=== PATIENT | female | born 1965 | race Caucasian/White ===

== ENCOUNTER 2020-04-20 19:55 | Emergency (ER) | payer OTHER ==
[~2020-04-20] VITALS: Ht 172.7 cm; Wt 99.8 kg
--- NOTE | 2020-04-20 20:32 | Emergency Department Note ---
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; PT NOTICED SWELLING TO SITE WAS MORE SWOLLEN; PT CURRENTLY ON ABX X1WK; PT WAS SEEN AT AN URGENT CARE YESTERDAY AND STARTED ON HIGHER DOSE OF ABX ( CLINDAMYCIN 300MG) AND TOLD TO COME TO THE ER TO HAVE ABSCESS LANCED; PT DENIES FEVER/CHILLS Historian: Patient Arrival Mode: Car Home Energy Inspector Required: No Onset (how long ago): week(s) (1) Location: R upper teeth Quality: Dull Radiation: Reports non-radiation Severity: mild Onset quality: gradual Duration (how long): week(s) (1) Timing of current episode: constant Progression: unchanged Chronicity: new Context: Denies recent illness, Denies recent surgery Relieving factors: none Exacerbating factors: none Associated symptoms: Reports denies other symptoms Treatments prior to arrival: none Past Medical/Family History Physician Review I have reviewed the patient's past medical and family history. Any updates have been documented here. Past Medical History Recent Fever: No Clinical Suspicion of Infectio: No New/Unexplained Change in Ment: No Review of Systems Review of Systems Constitutional: Reports no symptoms EENTM: Reports as per HPI, Reports other (R upper tooth/maxillary pain) Cardiovascular: Reports no symptoms Respiratory: Reports no symptoms Gastrointestinal: Reports no symptoms Genitourinary: Reports no symptoms Musculoskeletal: Reports no symptoms Integumentary: Reports no symptoms Neurological: Reports no symptoms Psychological: Reports no symptoms Endocrine: Reports no symptoms Hematological/Lymphatic: Reports no symptoms Physical Exam Related Data Allergies: Coded Allergies: Penicillins (Verified Allergy, Severe, ANAPHYLAXIS, 04/20/20) Triage Vital Signs Vital Signs Date Time Temp Pulse Resp B/P (MAP) Pulse Ox O2 Delivery O2 Flow Rate FiO2 04/20/20 20:12 98.5 75 18 126/69 99 Room Air Vital signs reviewed: Yes Physical Exam CONSTITUTIONAL Constitutional: Present well-developed, Present well-nourished HENT HENT: Present normocephalic, Present atraumatic, Present oropharynx clear/moist, Present nose normal, Present other (R maxiallary tenderness) HENT L/R: Present left ext ear normal, Present right ext ear normal EYES Eyes: Reports PERRL, Reports conjunctivae normal NECK Neck: Present ROM normal PULMONARY Pulmonary: Present effort normal, Present breath sounds normal CARDIOVASCULAR Cardiovascular: Present regular rhythm, Present heart sounds normal, Present capillary refill normal, Present normal rate GASTROINTESTINAL Abdominal: Present soft, Present nontender, Present bowel sounds normal GENITOURINARY Genitourinary: Present exam deferred SKIN Skin: Present warm, Present dry MUSCULOSKELETAL Musculoskeletal: Present ROM normal NEUROLOGICAL Neurological: Present alert, Present oriented x 3, Present no gross motor or sensory deficits PSYCHOLOGICAL Psychological: Present mood/affect normal, Present judgement normal Results Laboratory Lab results reviewed: Yes Imaging Imaging results reviewed: Yes Assessment & Plan Medical Decision Making MDM 54-year-old female presents for evaluation of right-sided maxillary tooth pain. She states the urgent care felt there could be an abscess. Significant for mild right maxillary tenderness but no obvious abscess. CT max face shows small .5x.3x.3 abscess which is not readily available to drain. Instructed her to continue taking her Clindamycin and follow up with her dentist. Reassessment Reassessment time: 22:09 Reassessment Well appearing, NAD Assessment & Plan Final Impression: (1) Dental infection Depart Disposition: HOME, SELF-CARE Last Vital Signs Date Time Temp Pulse Resp B/P (MAP) Pulse Ox O2 Delivery O2 Flow Rate FiO2 04/20/20 20:12 98.5 75 18 126/69 99 Room Air JOANNA FRANK MD Apr 20, 2020 20:32
[2020-04-20 20:37] LABS: BASOPHILS % 0.2 % (0.0-1.0); EOSINOPHILS # (AUTO) 0.2 (0.0-0.4); EOSINOPHILS % 1.7 % (0.0-6.0); HEMATOCRIT 40.2 % (34.2-44.1); HEMOGLOBIN 13.1 g/dL (12.0-16.0); LYMPHOCYTES # (AUTO) 2.6 (1.0-3.2); LYMPHOCYTES % 30.2 % (18.0-39.1); MEAN CORPUSCULAR HEMOGLOBIN 31.3 pg (28-32); MEAN CORPUSCULAR HGB CONC 32.6 g/dL (31-35); MEAN CORPUSCULAR VOLUME 95.9 fL (81-99); MONOCYTES # (AUTO) 0.5 (0.2-0.8); MONOCYTES % 5.3 % (4.4-11.3); NEUTROPHILS # (AUTO) 5.4 (2.1-6.9); NEUTROPHILS % 62.1 % (38.7-80.0); PLATELET COUNT 275 x10e3/uL (140-360); RED BLOOD COUNT 4.19 x10e6/uL (3.6-5.1); RED CELL DISTRIBUTION WIDTH 12.5 % (11.7-14.4)
[2020-04-20 20:52] LABS: ALANINE AMINOTRANSFERASE 17 IU/L (0-55); ALBUMIN 4.3 g/dL (3.5-5.0); ALBUMIN/GLOBULIN RATIO 1.9 (0.8-2.0); ALKALINE PHOSPHATASE 58 IU/L (40-150); ANION GAP 12.8 mmol/L (8-16); BLOOD UREA NITROGEN 11 mg/dL (7-26); BUN/CREATININE RATIO 15 (6-25); CALCIUM 8.5 mg/dL (8.4-10.2); CARBON DIOXIDE 26 mmol/L (22-29); CHLORIDE 107 mmol/L (98-107); CREATININE, SERUM 0.74 mg/dL (0.57-1.11); EST GLOMERULAR FILTRATION RATE > 60 ML/MIN (60-); GLUCOSE 128 mg/dL (74-118); POTASSIUM 3.8 mmol/L (3.5-5.1); SODIUM 142 mmol/L (136-145)
[2020-04-20] MEDS ORDERED: SODIUM CHLORIDE 0.9% 50ML 50 ML ONE (21:11)
[2020-04-20] MEDS ORDERED: IOPAMIDOL 370 MG/ML 200 ML INFUS..BTL INJ ONE (21:11)
--- NOTE | 2020-04-20 21:56 | Diagnostic Imaging Report ---
History:Right facial pain 3 days, history of dental work 1 week ago. Comparison studies: None Technique: Axial images were obtained through the facial region. Coronal and sagittal images reconstructed from the axial data. Dose modulation, iterative reconstruction, and/or weight based adjustment of the mA/kV was utilized to reduce the radiation dose to as low as reasonably achievable. Intravenous contrast: 100 cc of Isovue 370. Findings: Suboptimal evaluation due to dental amalgam artifacts. Despite the limitation, Soft tissues: Mild right premaxillary subcutaneous soft tissue inflammatory changes. A peripheral rim-enhancing hypodense fluid collection that approximately measures 0.5 x 0.3 x 0.3 cm along the right maxillary alveolar margin best seen in image 21, series 600, centered about the right maxillary first premolar, which has dental caries and subtle periapical lucency with thin focal buccal cortical break. Multiple missing teeth. Prominent right level 1B lymph node approximately measures 9.7 mm in long axis, is likely reactive. Bones: No fractures or bony abnormalities. Orbits: Globes: Intact. Extra or intraconal abnormalities: None. Paranasal sinuses: Mild mucosal thickening in right maxillary sinus, possibly odontogenic in origin. Incidental finding: Multiple nodules within the thyroid gland, largest in left lobe which is partially calcified approximately measures 1.5 x 1.6 x 1.4 cm. IMPRESSION: 1. Mild right premaxillary soft tissue cellulitis, with 0.5 cm odontogenic abscess along the right maxillary alveolar margin centered about right maxillary first premolar with dental caries and periapical lucency. 2. Mild mucosal inflammatory changes in right maxillary sinus, possibly odontogenic in origin. 3. Multifocal thyroid nodules, can be further evaluated with nonemergent thyroid ultrasonogram if previous workup has not been done. Signed by: Dr. Ina Katz M.D. on 04/20/2020 9:52 PM
--- NOTE | 2020-04-20 22:03 | NUR ---
ER MD AT BEDSIDE WITH PT DISCUSSING CT RESULTS.
[2020-04-20 22:32] VITALS: BP 130/6
== END 2020-04-20 22:33 | disposition home or self-care (01) ==
LOC: ER 20:35
DX: K04.7 Periapical abscess without sinus (principal)
CPT/HCPCS: 36415; 70487; 80053; 85025; 99283; Q9967